=== PATIENT | male | born 1955 | race Caucasian/White ===

== ENCOUNTER → 2018-12-15 | Outpatient (CLI) | payer OTHER, SELFPAY ==
[2018-12-15 10:48] LABS: Anion Gap 8 (5-15); BUN 24 mg/dL (7-18); Calcium,Total 8.7 mg/dL (8.5-10.1); Chloride 102 mmol/L (98-107); Cholesterol 191 mg/dL (200); Creatinine, Serum 0.89 mg/dL (0.70-1.30); EST Glomerular Filtration Rate 91 mL/min (>60); Est Glom Filt Rate - Afr Amer 110 mL/min (>60); Glucose 102 mg/dL (74-106); High Density Lipoprotein 53 mg/dL; Potassium 4.3 mmol/L (3.5-5.1); Sodium Level 139 mmol/L (136-145); Triglycerides 109 mg/dL; Very Low Density Lipoprotein 22 mg/dL (5-40)
== END | disposition home or self-care (01) ==
PROVIDERS: Family Provider Family Medicine; PCP Family Medicine; Referring Provider Family Medicine; Visit Provider Family Medicine
DX: I10 Essential (primary) hypertension (principal)
CPT/HCPCS: 36415; 80048; 80061

== ENCOUNTER → 2019-08-30 16:16 | Outpatient (CLI) | payer MEDICARE, OTHER, SELFPAY ==
[2017-04-21 07:24] VITALS: BMI 28.6
[2019-08-30 18:10] LABS: Amphetamine Urine VISTA NEGATIVE (<1000 ng/mL); Barbiturate Urine VISTA NEGATIVE (< 200 ng/mL); Benzodiazepine Urine VISTA NEGATIVE (< 200 ng/mL); Cocaine Urine VISTA NEGATIVE (< 300 ng/mL); Ecstacy Urine VISTA NEGATIVE (< 500 ng/mL); Methadone Urine VISTA NEGATIVE (< 300 ng/mL); PCP Urine VISTA NEGATIVE (< 25 ng/mL); THC Urine VISTA NEGATIVE (< 50 ng/mL); Vista UDS pH Range 7
== END ==
PROVIDERS: Family Provider Family Medicine; PCP Family Medicine; Visit Provider Internal Medicine Pulmonary Disease
DX: G47.10 Hypersomnia, unspecified (principal)
CPT/HCPCS: 80307

== ENCOUNTER → 2020-01-12 12:17 | Outpatient (CLI) | payer MEDICARE, OTHER, SELFPAY ==
[2017-04-21 07:24] VITALS: BMI 28.6
[2020-01-12 13:39] LABS: Absolute Lymphocyte Count 2.59 X10^3/uL (0.83-4.51); Absolute Neutrophil Count 4.7 X10^3/uL (2.0-7.7); Basophil# 0.07 X10^3/uL; Basophil% 0.8 % (0-1); Eosinophil# 0.14 X10^3/uL; Eosinophils% 1.7 % (0-5); Hematocrit 50.6 % (40-54); Hemoglobin 16.2 g/dL (13.0-16.5); Lymphocyte # 2.59 X10^3/ul (4.0); Lymphocyte % 30.8 % (19-41); Mean Corpuscular Hgb 28.4 pg (27.0-32.0); Mean Corpuscular Volume 88.6 fL (80-94); Mean Platelet Vol. 9.2 fl (6.2-12.0); Monocyte# 0.89 X10^3/uL; Monocyte% 10.6 % (0-10); NRBC Flagged by Analyzer 0 % (0-5); Neutrophil # 4.66 X10^3/uL (2.7-7.7); Neutrophil % 55.3 % (47-70); Platelet Count 249 K/mm3 (150-450); RBC Distribution Width CV 13.1 % (11.6-14.6); RBC Distribution Width SD 42.5 fl (35.1-43.9); Red Blood Count 5.71 M/mm3 (4.6-6.2); White Blood Count 8.4 K/mm3 (4.4-11.0)
[2020-01-12 14:06] LABS: AST(SGOT) 27 U/L (15-37); Alanine Aminotransfer ALT/SGPT 58 U/L (16-61); Albumin, Serum 3.9 g/dL (3.2-5.0); Alkaline Phosphatase 63 U/L (45-117); Bilirubin, Direct 0.13 mg/dL (0.00-0.30); Globulin 3.7 g/dL (2.2-4.2); Protein, Total 7.6 g/dL (6.4-8.2)
== END ==
PROVIDERS: PCP Family Medicine; Referring Provider Dermatology; Visit Provider Dermatology
DX: B35.1 Tinea unguium (principal); L57.8 Other skin changes due to chronic exposure to nonionizing radiation; L57.0 Actinic keratosis; Z79.899 Other long term (current) drug therapy
CPT/HCPCS: 36415; 80076; 85025

== ENCOUNTER 2020-05-23 11:30 | Outpatient (RCR) | payer MEDICARE, OTHER, SELFPAY ==
--- NOTE | 2020-05-03 11:49 | HP.PTEVAL ---
Patient's Visit Information KRIS PEREZ is a 65 year old M referred to Physical Therapy by Dr. Keith Ibarra MD with a diagnosis of Unsteady gait.. Date of Evaluation: 05/03/20 Physical Therapist: John Johnson DPT, OCS, CSCS - Visit Plan Frequency: 2x /Week Duration: 4-6 Weeks Plan: Neurocom balance test then likely 2-3 visits to teach HEP or 2x/week for 4 weeks as needed. Likely vestibular ex, FW weight shift adn PF strength.Pt appears clinically to have weakness in Vestibular system adn FW weight shift and probable neuropathy. This may come from his back as he has history adn his R PF are weak vs L. He is to notify pain doctor for possible MRI which is appropriate and has been recommended previously. - Subjective A little trouble once in a while with balance. No precipitative factor. Has h/o back problems adn sees [facility] for pain management. Legs can feel numby if standing in place long time like at [facility]. 6 months have been worse balance off and on. Frequency can be a couple times per day to every other day and only lasts short time. No falls. No neuroapthy but back can make feet numb at times. Has some burning in L [place] with driving at times. No current pain. Just had injection in back recently. No spinning ro dizzyness. 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 Activities at home are normal, no aD needed. Basic ADLS are good. - Objective VOR challenging especially with walking. Walks normal otherwise. Transfers normal. Steps reciprocal without rail today. Pt tends to avoid forefoot weight shifting in stance and stressful situations.(foam). LE sensation to light touch at deficit in feet B. coordination to reciprocal toe tapping is weak in B E, better in UE. reflexes 2/3 patella and achilles. Strength in hips 4- and knees 4-, ankles 4/5 inv/ev/DF, PF is weak R unable to heel raise, L is better.. LBP ROM is stiff adn without pain today. Pt brings up walking in dark and stadning in shower with ec as problem areas. - Balance Scores Functional Gait Assessment Score: 25 % Disability: 16.6700 CATSIB Score (Max score 120 seconds): 100 - Goals Goal 1:: Patient score 27/30 on FGA to reduce fall risk Goal Time Frame: 4-6 Weeks Goal 2:: Neurocom test adn review results. Goal Time Frame: 2 Weeks Goal 3:: Pt I in appropriate HEP to minimze future problems. Goal Time Frame: 4-6 Weeks Goal 4:: Pt feel 50% improved in overall balance. Goal Time Frame: 4-6 Weeks - Rehabilitation Potential Physical Therapy Diagnosis: Unsteady gait, likely contributed by neuropathy, vest weakness. Rehabilitation Potential: Fair - Anticipated Interventions Patient/Client Instruction: Educate patient on: Condition, Plan of Care For the Purpose of:: To improve gait and locomotor functions, To improve balance, To improve safety with gait Therapeutic Exercise to Include: Strength training, Balance training, Gait and locomotor training For the Purpose of:: To improve muscle performance and motor function, To improve ability of physical actions for home/community/work/leisure, To improve safety with gait Thank you for the opportunity to evaluate your patient. For Medicare and Medicare HMO plans, please review the plan of care and approve it. It will need to be FAXED BACK to us at [phone] for Medicare purposes. For Medicare only, by signing this I certify the plan of care. Please let me know if there are questions or concerns regarding this plan of care. Physician Signature: Date:
--- NOTE | 2020-05-11 12:02 | HP.PTCOM_ITS ---
PT Communication Note 05/11/[address] Keith Ibarra MD , Thank you for the referral of Ghanshyam to [facility] for balance assessment. I have enclosed a copy of the results for your review. In summation, he scored low on the visual and somatosensory portion of the Sensory Organization Test. He scored low on the FW weight shift on the Limits of Stability Test. With these results in mind, I plan to see him for a couple visits to address these issues with an HEP and then let him exercise at home. I will recheck his balance in a month or so to ensure progress. Please let me know if there are questions regarding his PT. Thank you again. Sincerely, John Johnson DPT, OCS, CSCS Contact Information
--- NOTE | 2020-07-11 15:42 | HP.PT.NRP ---
KRIS PEREZ was seen in my office for initial evaluation on 05/03/20. The following Plan of Care was established for this patient: Initial Frequency: 2x /Week Initial Duration: 4-6 Weeks Patient/Client Instruction: Educate patient on: Condition, Plan of Care For the Purpose of:: To improve gait and locomotor functions, To improve balance, To improve safety with gait Therapeutic Exercise to Include: Strength training, Balance training, Gait and locomotor training For the Purpose of:: To improve muscle performance and motor function, To improve ability of physical actions for home/community/work/leisure, To improve safety with gait This patient was last seen in our office 05/23/20. Pertinent comments regarding their Physical therapy will appear below: Pt seen 4 visits of POC and then neglected to schedule or attend the rest of his POC. At this point, it has been over 6 weeks and I willd scontinue due to nonattendance. At this point I will be discontinuing this patient from physical therapy. I would be happy to see this patient again in the future if found appropriate by the physician. Thank you! John Johnson, DPT, OCS, CSCS
== END 2020-05-23 19:00 | disposition home or self-care (01) ==
LOC: PT 11:30
PROVIDERS: PCP Family Medicine; Referring Provider Family Medicine; Visit Provider Family Medicine
DX: R26.81 Unsteadiness on feet (principal)
CPT/HCPCS: 97110; 97162; 97750

== ENCOUNTER → 2020-06-15 10:10 | Outpatient (CLI) | payer MEDICARE, OTHER, SELFPAY ==
--- NOTE | 2020-06-15 10:16 | MRI_ITS ---
STUDY: MRI LUMBAR SPINE WITHOUT CONTRAST REASON FOR EXAM: Male, 65 years old. back pain radiatess into both legs, bilat leg numbess TECHNIQUE: Standardized fat and water weighted pulse sequences were obtained in the sagittal and axial planes. COMPARISON: 06/15/2014 FINDINGS: T12-L1: Normal endplates. Normal disc height, hydration and morphology. Normal bilateral facet joints. Normal central canal and bilateral lateral recesses. Normal bilateral intervertebral neural foramina. Normal lumbar lordosis. There is no substantial scoliosis. Normal conus medullaris that terminates at T12-L1 L1-2: Normal endplates. Normal disc height, hydration and morphology. Normal bilateral facet joints. Normal central canal and bilateral lateral recesses. Normal bilateral intervertebral neural foramina. L2-3: Normal endplates. Normal disc height, desiccation and minimal annular bulge.. Mild facet arthropathy and thickening of ligamenta flava greater on the left. Normal central canal and bilateral lateral recesses. Mild right neuroforaminal stenosis and moderate narrowing on the left. L3-4: Normal endplates. Normal disc height, desiccation and minimal annular bulge.. Bilateral facet arthropathy and thickening of ligamenta flava.. Normal central canal. Moderate bilateral recess and neuroforaminal stenosis L4-5: Grade 1 spondylolisthesis Normal endplates. Normal disc height, desiccation and minor bulging disc osteophyte complex small right paracentral annular tear and disc protrusion.. Bilateral facet arthropathy and thickening of ligamenta flava.. Mild narrowing of the central canal.. Moderate to severe bilateral recess and neuroforaminal stenosis exaggerated by shortened pedicles.. L5-S1: Normal endplates. Normal disc height, desiccation and minor annular bulge with tiny right paracentral annular tear and disc protrusion. Bilateral facet arthropathy.. Normal central canal and bilateral lateral recesses. Mild bilateral neuroforaminal stenosis. Normal visualized sacral ala. Normal visualized paraspinous soft tissue structures. There appears to be slightly increasing spinal stenosis at L3-4 and L4-5 since prior study.. MRI/Spine Lumbar (Routine) IMPRESSION: No acute fracture or other significant bony pathology. Multilevel spinal stenosis secondary to disc disease and bony hypertrophy most severe at L4-5 exaggerated by shortened pedicles and L3-4 Electronically Signed: Kris Bell MD at 16:59 EDT , Service support ,
== END ==
PROVIDERS: PCP Family Medicine; Referring Provider Nurse Practitioner Family; Visit Provider Nurse Practitioner Family
DX: M51.37 Other intervertebral disc degeneration, lumbosacral region (principal); M47.27 Other spondylosis with radiculopathy, lumbosacral region; M46.96 Unspecified inflammatory spondylopathy, lumbar region
CPT/HCPCS: 72148

== ENCOUNTER → 2020-10-24 09:34 | Outpatient (CLI) | payer MEDICARE, OTHER, SELFPAY ==
[2017-04-21 07:24] VITALS: BMI 28.6
[2020-10-24 10:42] LABS: ALB/GLOB Ratio 1.1 RATIO (0.9-2.4); AST(SGOT) 26 U/L (15-37); Alanine Aminotransfer ALT/SGPT 64 U/L (16-61); Albumin, Serum 3.8 g/dL (3.2-5.0); Alkaline Phosphatase 64 U/L (45-117); Anion Gap 5 (5-15); BUN 29 mg/dL (7-18); BUN/Creat Ratio 30.3 RATIO (10-20); Chloride 103 mmol/L (98-107); Cholesterol 181 mg/dL (200); Creatinine, Serum 0.96 mg/dL (0.70-1.30); EST Glomerular Filtration Rate 83 mL/min (>60); Est Glom Filt Rate - Afr Amer 101 mL/min (>60); Globulin 3.4 g/dL (2.2-4.2); Glucose 96 mg/dL (74-106); High Density Lipoprotein 55 mg/dL; Potassium 3.9 mmol/L (3.5-5.1); Protein, Total 7.2 g/dL (6.4-8.2); Sodium Level 136 mmol/L (136-145); Triglycerides 108 mg/dL; Very Low Density Lipoprotein 22 mg/dL (5-40)
== END ==
PROVIDERS: PCP Family Medicine; Referring Provider Family Medicine; Visit Provider Family Medicine
DX: I10 Essential (primary) hypertension (principal); E78.00 Pure hypercholesterolemia, unspecified; Z12.5 Encounter for screening for malignant neoplasm of prostate
CPT/HCPCS: 36415; 80053; 80061; 84153; G0103

== ENCOUNTER 2021-01-08 06:29 | Day surgery (SDC) | payer MEDICARE, OTHER, SELFPAY ==
[2017-04-21 07:24] VITALS: BMI 28.6
[2021-01-08] VITALS (7 sets, daily range): BP systolic 97–115; BP diastolic 68–73; PULSE 65–91; RESP 16; TEMP 36.9–37.2; O2SAT 94–98; BMI 29.0
[2021-01-08] MEDS: Lactated Ringers 1,000 ML 100 ML IV (07:07)
--- NOTE | 2021-01-08 07:29 | H&P.OPEN ---
HPI - General HPI Narrative KRIS PEREZ, is a 65 M who presents for colonoscopy due to history of polyps. Patient last colonoscopy was about 5 years ago at [facility]. Patient denies any chronic abdominal pain/nausea or vomiting. Patient states his reflux is controlled with Protonix. Patient also had an EGD by me in 2017 showed some reflux. Patient denies any family history of colon cancer. [facility] Medical History (Updated 01/08/21 @ 07:[address] Yesika Koch MD) Anxiety Back pain CPAP (continuous positive airway pressure) dependence GERD (gastroesophageal reflux disease) Hx of cardiovascular stress test Hx of echocardiogram Hx of Raynaud's syndrome Hypertension Non-smoker Wears glasses Home Medications Fish Oil 2 ea PO BID 06/14/14 [History Last Taken 06/14/14] Therems-M 1 tab PO DAILY 06/14/14 [History Last Taken 06/13/14] aspirin 81 mg PO DAILY@0800 06/14/14 [History Last Taken 01/07/21 06:00] atenolol 12.5 mg PO DAILY 06/14/14 [History Last Taken 04/21/17 06:00] citalopram 10 mg PO DAILY 06/14/14 [History Last Taken 06/14/14] zgujvvglydd-hbsktshpw-fen C-Mn 1 tab PO DAILY 06/14/14 [History Last Taken 06/13/14] meloxicam 15 mg PO DAILY 06/14/14 [History Last Taken 06/14/14] cyclobenzaprine 10 mg PO TID PRN PRN #30 tablet 06/16/14 [Rx Last Taken Unknown] lisinopril 10 mg PO DAILY #30 tablet 06/16/14 [Rx Last Taken 04/21/17 06:00] pantoprazole 40 mg PO DAILY #14 tablet 06/16/14 [Rx Last Taken 04/21/17 06:00] pravastatin 20 mg PO DAILY 04/21/17 [History Last Taken Unknown] gabapentin 400 mg PO TIDCM 01/04/21 [History Last Taken Unknown] nifedipine 30 mg PO QHS 01/04/21 [History Last Taken Unknown] Allergy/AdvReac Type Severity Reaction Status Date / Time No Known Allergies Allergy Verified 01/08/21 07:00 Surgical History (Updated 01/04/21 @ 11:08 by Renetta Jackson) History of esophagogastroduodenoscopy (EGD) Hx of appendectomy Hx of arthroscopy of left knee Hx of arthroscopy of right knee Hx of tonsillectomy Social History Smoking Status: Never smoker Past Medical/Surgical History Planned Operation Planned Operative Procedure/s: cscope S.O.S: No Previous Hospitalizations/Surgeries HX Hospitalizations: No HX of Surgeries: ANISHA KNEE ARTHROSCOPY T&A APPENDECTOMY Any Problems With Anesthesia: No You/Your Family Experience Fever (Hyperthermia) With Anes: No Cholinesterase deficiency: No Cardiovascular Hx Chest Pain within Last 2 months: No Hx of Irregular Heartbeat and/or Afib: No Hx Heart Attack: No Hx Congestive Heart Failure: No Hx Rheumatic Fever: No Hx Hypertension: Yes (controlled with med) Hx Internal Defibrillator: No Hx Pacemaker: No Hx Cardiac Catheterization: No Hx Cardiac Surgery/Stents/Etc.: No Hx Stress Test: Yes (2013 [facility], ECHO 2013) Hx Pain in Legs when Walking/Leg Cramps: No Respiratory Chronic Cough: No HX of Shortness of Breath: No (ABLE 2TO WALK 2 FLIGHTS OF STAIRS WITHOUT SOB) Hoarseness: No Hx Chronic Obstructive Pulmonary Disease (COPD): No Hx Asthma: No Hx Emphysema: No Hx Sleep Apnea: Yes CPAP: Yes BIPAP: No Hx Respiratory Tract Infection/Cold (presently): No Result (for STOP score): Positive Hx Smoking: No Smoking Status: Never smoker Gastrointestinal Hx Gastroesophageal Reflux: Yes Controlled With Meds: Yes Hx Gastrointestinal Disorders: No Hx Gastrointestinal Bleed: No Hx Ulcer: No Hx Hiatal Hernia: No Difficulty Chewing/Swallowing: No Special diet followed at home: No Hx Unplanned Weight Loss of 20#: No HX Unplanned Weight Gain of 20#: No Neurological Hx Seizures: No HX Syncope/Blackout Spells/Unconsciousness: No Hx Transient Ischemic Attacks (TIA): No Hx Multiple Sclerosis: No Hx Parkinson's Disease: No Hx Head/Neck Injury: No Hx Headaches: No Hx Back Injury/Pain: Yes (lower spine stenosis, herniated disc) Recent Onset of Speech Difficulty: No Restless Legs: No Does patient have nerve stimulator: No Blood Disorder Hx Leukemia: No Bleeding Tendencies: Yes (ON BABY ASPIRIN) Hx Deep Vein Thrombosis: No Hx High Cholesterol: Yes (ON MED) Blood Transmitted Disease: No Hx Hepatitis: No Hx Cirrhosis: No Hx Anemia: No Hx Blood Disorders: No Reproduction : No Genitourinary Hx Renal Disease: No Hx Dialysis: No Musculoskeletal Hx Arthritis: Yes Hx Rheumatoid Arthritis: No Hx Gout: No Recent Onset of an Orthopedic Problem: No Endocrine Hx Diabetes: No Insulin: No Thyroid Disease: No Hx Steroid Therapy: No Psycho/Social Hx Substance Use: No Hx Alcohol Use: No Hx Anxiety: Yes Hx Depression: No Mental Illness: No Hx Dementia: No Miscellaneous Hx Cancer: No Recent Exposure to Contagious Disease: No Hx of C-Diff: No Any Loose Teeth: No Allergies No Known Allergies Allergy (Verified 01/08/21 07:00) Maternal: Cancer (Gallbladder.) and Diabetes Paternal: Heart Disease (Father and grandfather with [facility] in 40-50s.) Discharge Is Pt Admitted From a Penitentiary, or a Custodial: No After D/C, Where Do you Plan to Go: Return Home From the PAT History Number of Risk Factors: 2 Vital Signs Vital Signs Vital Signs: 01/08/21 07:01 Temperature 98.7 F Temperature Source Temporal Pulse Rate 72 Respiratory Rate 16 Respiratory Pattern Normal Blood Pressure 115/72 Blood Pressure Mean 86 Blood Pressure Source Monitor Blood Pressure Position Semi-Fowlers Blood Pressure Location Left Arm Pulse Ox 98 Oxygen Delivery Method Room Air Physical Exam Const alert, oriented x3 and no apparent distress HEENT normocephalic and head/scalp atraumatic Resp normal respiratory effort Cardio regular rate GI soft to palpation and non-tender; Negative for non-distended Palpation: Negative for guarding Extremity no clubbing, cyanosis or edema Neuro CN's II-XII intact bilaterally Psych mental status grossly normal Assessment & Plan Assessment/Plan (1) Hx of colonic polyp: Procedure Criteria Type of Procedure Procedure Type: Elective Elective Risks - COVID COVID Risk Discussion: The surgeon/proceduralist and patient have discussed in detail the risk of exposure to and/or potential harm posed by the COVID-19 virus with having a surgery/procedure at this time versus the risk of delaying the surgery/procedure. It is not possible to know either the risk of delaying the surgery or procedure or chance of getting an infection with perfect accuracy, but a joint decision was made between the patient and the surgeon/proceduralist to proceed at this time with the scheduled surgery/procedure as indicated on the consent form. Surgery Risks - Colonoscopy Risks Include but are not Limited To: Risks include but are not limited to: Bleeding, perforation requiring further surgery, inability to complete colonoscopy requiring barium enema.
--- NOTE | 2021-01-08 08:00 | COLBX_PTH ---
PATIENT: KRIS PEREZ LOC: EN U#:[id number] AGE/SX: 65/M ROOM: RE01/08/[address]: Dr. Yesika Koch MD : 1955 BED: DIS: 01/08/2021 SPEC #: [id number] RECD: 01/08/21 10:20 STATUS: DOMINIQUE REQ #: [id number] NATASHA: 01/08/21 08:[address]: Yesika Koch DEPT: SURGICAL PATHOLOGY RECD BY: Trixie Cerrato ENTERED: 01/08/21 12:58 SP TYPE: COLON BX OTHR DR: Dr. Keith Ibarra MD Tissues: Ascending colon Procedures: Surgery Specimen Level IV HEADER OPERATION: Colonoscopy ? open access (MAC) PRE-OP DIAGNOSIS: History of colonic polyp TISSUE SUBMITTED: Ascending colon polyp biopsy MICROSCOPIC DIAGNOSIS Ascending colon polyp, biopsy: Tubular adenoma. SJ:alannah 01/09/2021 MICROSCOPIC DESCRIPTION Slides are reviewed. GROSS DESCRIPTION Received in fixative is one container labeled with the patient's name and designated ascending colon polyp biopsy. The specimen consists of two irregular fragments of light diaz soft tissue that in aggregate measure 0.4 x 0.2 x 0.1 cm. The specimen is totally submitted in one cassette. / SJ:rg 01/08/21 TC:1 CPT: 37967
--- NOTE | 2021-01-08 08:22 | OP.COLON_ITS ---
Patient Name: Ghanshyam Navarrete Procedure Date: 01/08/2021 7:08 AM Date of : 1955 Age: 65 Procedure: Colonoscopy Indications: High risk colon cancer surveillance: Personal history of colonic polyps Providers: Yesika Koch MD Medicines: Monitored Anesthesia Care Patient Profile: This is a 65 year old male. Last Colonoscopy: 5 years ago. Complications: No immediate complications. Procedure: Pre-Anesthesia Assessment: - Prior to the procedure, a History and Physical was performed, and patient medications and allergies were reviewed. The patient's tolerance of previous anesthesia was also reviewed. The risks and benefits of the procedure and the sedation options and risks were discussed with the patient. All questions were answered, and informed consent was obtained. Prior Anticoagulants: The patient has taken no previous anticoagulant or antiplatelet agents. ASA Grade Assessment: Per anesthesia. After reviewing the risks and benefits, the patient was deemed in satisfactory condition to undergo the procedure. After I obtained informed consent, the scope was passed under direct vision. Throughout the procedure, the patient's blood pressure, pulse, and oxygen saturations were monitored continuously. The pediatric colonoscope was introduced through the anus and advanced to the cecum, identified by the appendiceal orifice, ileocecal valve and palpation. The colonoscopy was performed without difficulty. The patient tolerated the procedure well. The quality of the bowel preparation was good. Scope In: 7:53:21 AM Scope Withdrawal Time 0 hours 11 minutes 43 seconds Scope Out: 8:14:43 AM Total Procedure Duration Time 0 hours 21 minutes 22 seconds Findings: Hemorrhoids were found on perianal exam. External and internal hemorrhoids were found. The hemorrhoids were Grade III (internal hemorrhoids that prolapse but require manual reduction). A less than 5 mm polyp was found in the ascending colon. The polyp was sessile. The polyp was removed with a cold biopsy forceps. Resection and retrieval were complete. The exam was otherwise without abnormality. Impression: - Hemorrhoids found on perianal exam. - External and internal hemorrhoids. - One less than 5 mm polyp in the ascending colon, removed with a cold biopsy forceps. Resected and retrieved. - The examination was otherwise normal. Recommendation: - Discharge patient to home. - Resume previous diet. - Continue present medications. - Await pathology results. - Repeat colonoscopy in 5 years for surveillance based on pathology results. Procedure Code(s): --- Professional --- 97521, PT, Colonoscopy, flexible; with biopsy, single or multiple Diagnosis Code(s): --- Professional --- Z86.010, Personal history of colonic polyps K64.2, Third degree hemorrhoids D12.2, Benign neoplasm of ascending colon CPT copyright 2017 [employer]. All rights reserved. The codes documented in this report are preliminary and upon protection analyst review may be revised to meet current compliance requirements. MD Yesika Urbano MD 01/08/2021 8:22:08 AM This report has been signed electronically. Number of Addenda: 0 Note Initiated On: 01/08/2021 7:08 AM
--- NOTE | 2021-01-08 08:23 | OP.CCLET_ITS ---
01/08/2021 Keith Ibarra MD [address] [id number] Re : Colonoscopy procedure for Ghanshyam Navarrete Dear Dr. Ibarra This procedure was performed on Friday, January 08, 2021. My impressions and recommendations are as follows: Impressions : - Hemorrhoids found on perianal exam. - External and internal hemorrhoids. - One less than 5 mm polyp in the ascending colon, removed with a cold biopsy forceps. Resected and retrieved. - The examination was otherwise normal. Recommendations : - Discharge patient to home. - Resume previous diet. - Continue present medications. - Await pathology results. - Repeat colonoscopy in 5 years for surveillance based on pathology results. My findings are described in the full procedure note, which is enclosed. If I can be of further assistance, please feel free to contact me at Doctor phone number(s): , Work: . Sincerely, MD Yesika Urbano MD 01/08/2021 8:22:08 AM This report has been signed electronically.
== END 2021-01-08 09:09 ==
LOC: EN 06:31 → AC 06:32
PROVIDERS: PCP Family Medicine; Referring Provider Family Medicine; Visit Provider Surgery
PROC: 0DJD8ZZ Inspection of Lower Intestinal Tract, Via Natural or Artificial Opening Endoscopic (ICD-10-PCS; CPT 45378; principal; 2021-01-08 07:55)
DX: Z12.11 Encounter for screening for malignant neoplasm of colon (principal); D12.2 Benign neoplasm of ascending colon; K64.4 Residual hemorrhoidal skin tags; K64.2 Third degree hemorrhoids; I10 Essential (primary) hypertension; F41.9 Anxiety disorder, unspecified; K21.9 Gastro-esophageal reflux disease without esophagitis; Z79.82 Long term (current) use of aspirin; Z79.1 Long term (current) use of non-steroidal anti-inflammatories (NSAID); Z79.899 Other long term (current) drug therapy; Z86.010 Personal history of colon polyps; Z87.19 Personal history of other diseases of the digestive system
CPT/HCPCS: 45380; 88305; J7120; J2405

== ENCOUNTER 2021-10-31 10:13 | Outpatient (CLI) | payer MEDICARE, OTHER, SELFPAY ==
--- NOTE | 2021-10-31 10:20 | MRI_ITS ---
HISTORY: Radiculopathy, spondylosis. TECHNIQUE: Multiplanar and multisequence MR images of the lumbar spine. IV Contrast dosage and agent: None. # of images incl. paperwork: 126. COMPARISON: 06/15/2020. FINDINGS: VERTEBRAE: Vertebral body heights maintained. Mild degenerative endplate changes without significant bone marrow signal abnormality. ALIGNMENT: Unchanged 2 mm anterolisthesis of L4-5. CONUS: Normal morphology and position at T12-L1. SOFT TISSUES: No paraspinal fluid collection. Mild posterior subcutaneous edema. INTERVERTEBRAL DISCS: T12-L1, L1-2: No significant posterior disc herniation, central canal stenosis, or foraminal narrowing. L2-3:Mild posterior disc bulge osteophyte complex with facet arthropathy resulting in mild central canal stenosis with mild-moderate foraminal narrowing, similar to prior. L3-4: Mild posterior disc protrusion with annular fissure. Facet arthropathy and developmentally narrow spinal canal. Moderate-severe central canal stenosis and moderate bilateral foraminal narrowing. L4-5: Mild posterior disc protrusion with annular fissure. Facet arthropathy and developmentally narrow spinal canal. Severe central canal stenosis and moderate bilateral foraminal narrowing. L5-S1: Mild posterior disc protrusion with annular fissure. Facet arthropathy. Mild central canal stenosis and bilateral foraminal narrowing. MRI/Spine Lumbar (Routine) IMPRESSION: Multilevel degenerative disc disease with moderate-severe spinal canal stenosis at L3-4 and severe spinal canal stenosis at L4-5 as described above. at 1134 Reported and signed by: Torri Ybarra MD Electronically Signed: Torri Ybarra MD at 11:33 EST ,
== END 2021-10-31 23:59 | disposition home or self-care (01) ==
LOC: MRI 10:16
PROVIDERS: PCP Family Medicine; Referring Provider Nurse Practitioner Family; Visit Provider Nurse Practitioner Family
DX: M46.96 Unspecified inflammatory spondylopathy, lumbar region (principal); M51.37 Other intervertebral disc degeneration, lumbosacral region; M54.17 Radiculopathy, lumbosacral region; M47.817 Spondylosis without myelopathy or radiculopathy, lumbosacral region
CPT/HCPCS: 72148

== ENCOUNTER → 2022-01-09 | Outpatient (CLI) | payer MEDICARE, OTHER, SELFPAY ==
[2022-01-09 12:24] LABS: ALB/GLOB Ratio 1.1 RATIO (0.9-2.4); AST(SGOT) 19 U/L (15-37); Alanine Aminotransfer ALT/SGPT 49 U/L (16-61); Alkaline Phosphatase 61 U/L (45-117); Anion Gap 2 (5-15); BUN 21 mg/dL (7-18); BUN/Creat Ratio 23.9 RATIO (10-20); Calcium,Total 8.9 mg/dL (8.5-10.1); Chloride 103 mmol/L (98-107); Cholesterol 182 mg/dL (200); Creatinine, Serum 0.88 mg/dL (0.70-1.30); EST Glomerular Filtration Rate 92 mL/min (>60); Est Glom Filt Rate - Afr Amer 111 mL/min (>60); Globulin 3.5 g/dL (2.2-4.2); Glucose 105 mg/dL (74-106); High Density Lipoprotein 48 mg/dL; Potassium 3.6 mmol/L (3.5-5.1); Protein, Total 7.5 g/dL (6.4-8.2); Sodium Level 136 mmol/L (136-145); Triglycerides 127 mg/dL; Very Low Density Lipoprotein 25 mg/dL (5-40)
[2022-01-09 12:28] LABS: Hemoglobin A1c 5.8 % (3.8-5.6)
== END | disposition home or self-care (01) ==
LOC: MFPLAB 10:35
PROVIDERS: PCP Family Medicine; Referring Provider Family Medicine; Visit Provider Family Medicine
DX: E78.00 Pure hypercholesterolemia, unspecified (principal); R73.09 Other abnormal glucose
CPT/HCPCS: 36415; 80053; 80061; 83036

== ENCOUNTER 2022-06-18 12:20 | Emergency (ER) | payer MEDICARE, OTHER, SELFPAY ==
[2022-06-18 12:21] VITALS: BP 126/85; PULSE 91; RESP 18; TEMP 36.7; O2SAT 100; BMI 31.1
--- NOTE | 2022-06-18 13:18 | VDLE_ITS ---
Reason For Study: Swelling Procedure LEFT This is a venous duplex using B-mode, color GSV is normal. flow and spectral Doppler. CFV is compressible, spontaneous, phasic, Exam performed portable in ED. competent, and demonstrates normal A preliminary report was called and/or faxed augmentation. to [facility]. FV is compressible, spontaneous, phasic, competent and demonstrates normal augmentation. POP V is compressible, spontaneous, phasic, competent and demonstrates normal augmentation. T/P Trunk is compressible. PTV is compressible. LT PerV is compressible. VL/Venous Duplex US, Unilateral Interpretation Summary Deep veins of the left lower extremity are patent and compressible segmentally. There is no evidence of left lower extremity deep vein thrombosis. The left great saphenous vein adrian ears patent and compressible segmentally. Ordering Physician: Lovely Winston Referring Physician: Keith Ibarra Performed By: Tatyana Hernandez RVT
--- NOTE | 2022-06-18 13:19 | EX.ED.DYSGE1 ---
HPI History of Present Illness Chief Complaint: Lower Extremity Injury Detail of Chief Complaint: Left leg swelling Informant: patient Narrative Narrative: Patient is 1 month postop back surgery. He went to see them yesterday for follow-up. They felt that the left leg was slightly more swollen than the right patient should have an ultrasound. Patient states that he called this morning to get the test scheduled but was told he could not be scheduled until June. He states his doctor wanted it done immediately so he was referred to the emergency room. He denies significant leg pain. He states overall he feels that he is healing well from his surgery. [facility] Medical History Anxiety Back pain CPAP (continuous positive airway pressure) dependence GERD (gastroesophageal reflux disease) Hx of cardiovascular stress test Hx of echocardiogram Hx of Raynaud's syndrome Hypertension Non-smoker Wears glasses Home Medications aspirin 81 mg chewable tablet 81 mg PO DAILY@0800 06/14/14 [History Last Taken 01/07/21 06:00] atenolol 25 mg tablet 12.5 mg PO DAILY 06/14/14 [History Last Taken 04/21/17 06:00] citalopram 10 mg tablet 10 mg PO DAILY 06/14/14 [History Last Taken 06/14/14] ypqvsisgrla-gqawyivya-jew C-Mn 500 mg-400 mg capsule 1 tab PO DAILY 06/14/14 [History Last Taken 06/13/14] meloxicam 15 mg tablet 15 mg PO DAILY 06/14/14 [History Last Taken 06/14/14] multivitamin,ad-jntj-mjchjdld 27 mg-0.4 mg tablet (Therems-M) 1 tab PO DAILY 06/14/14 [History Last Taken 06/13/14] omega-3 fatty acids-fish oil 340 mg-1,000 mg capsule (Fish Oil) 2 ea PO BID 06/14/14 [History Last Taken 06/14/14] cyclobenzaprine 10 mg tablet 10 mg PO TID PRN PRN Muscle Spasm ##30 06/16/14 [Rx Last Taken Unknown] lisinopril 10 mg tablet 10 mg PO DAILY ##30 06/16/14 [Rx Last Taken 04/21/17 06:00] pantoprazole 40 mg tablet,delayed release 40 mg PO DAILY ##14 06/16/14 [Rx Last Taken 04/21/17 06:00] pravastatin 20 mg tablet 20 mg PO DAILY 04/21/17 [History Last Taken Unknown] gabapentin 100 mg capsule 400 mg PO TIDCM 01/04/21 [History Last Taken Unknown] nifedipine 30 mg tablet,extended release 30 mg PO QHS 01/04/21 [History Last Taken Unknown] Allergy/AdvReac Type Severity Reaction Status Date / Time No Known Allergies Allergy Verified 06/18/22 12:23 Surgical History History of esophagogastroduodenoscopy (EGD) Hx of appendectomy Hx of arthroscopy of left knee Hx of arthroscopy of right knee Hx of tonsillectomy Social History Smoking Status: Never smoker ROS ROS ED Constitutional Constitutional ED: Denies chills or fever(s) Eyes Eyes: Denies change in vision or discharge from eye(s) ENT ENT ED: Denies discharge from eye(s), rhinorrhea or sore throat Cardiovascular Cardiovascular: Denies chest pain or palpitations Respiratory/Chest Respiratory/Chest: Denies cough or dyspnea Gastrointestinal Gastrointestinal: Denies abdominal pain, diarrhea, nausea or vomiting Genitourinary Genitourinary ED: Denies dysuria Musculoskeletal Musculoskeletal: Denies back pain or extremity pain Integumentary Denies Abrasions or rash Neurologic Neurologic: Denies headache(s) or weakness Psychiatric Psychiatric: Denies anxiety or depression Allergic/Immunologic Allergic/Immunologic ED: Denies lip swelling or urticaria EXAM Physical Exam Const Vital Signs: 06/18/22 12:21 Temperature 98.1 F Temperature Source Temporal Pulse Rate 91 Respiratory Rate 18 Blood Pressure 126/85 H Blood Pressure Mean 98 Pulse Ox 100 Oxygen Delivery Method Room Air Positive well nourished and well developed General Appearance ED: well developed HEENT Reports normocephalic and head/scalp atraumatic Eyes PERRL and EOMs intact bilaterally Neck supple Chest Wall inspection of chest normal and palpation of chest normal Resp normal respiratory effort and clear to auscultation bilaterally Cardio regular rate and regular rhythm GI normal to inspection, nondistended, normoactive bowel sounds Palpation: soft Extremity Extremity Narrative: Mild edema to the left lower extremity. No erythema. Strong distal pulses. Neuro oriented x3 and no sensory deficits noted Sensorium / Orientation: alert Motor Exam: strength 5/5 throughout Psych mental status grossly normal Skin no rashes or lesions noted MDM MDM MDM Narrative Medical decision making narrative: Venous ultrasound left lower extremity obtained. Treatment and Re-Evaluation Narrative: Venous ultrasound reveals no evidence of DVT. Test results discussed with patient and spouse at bedside. They are comfortable with discharge to home. Discharge Plan Triage Chief Complaint: Lower Extremity Injury ED Provider: Lovely Winston Dx/Rx/DC Orders Clinical Impression: Edema Instructions: ED Peripheral Edema, Unilateral Prescriptions: No Action citalopram 10 MG tablet 10 mg PO DAILY Label Comments: depression meloxicam 15 MG tablet 15 mg PO DAILY Label Comments: pain atenolol 25 MG tablet 12.5 mg PO DAILY Label Comments: heart/blood pressure aspirin 81 MG tablet,chewable 81 mg PO DAILY@0800 Label Comments: blood thinner/heart Therems-M 1 TABLET tablet 1 tab PO DAILY Label Comments: vitamin dbcmzfmmdvr-kdicnpeit-enn C-Mn 1 EACH capsule 1 tab PO DAILY Label Comments: supplement Fish Oil 1 EACH capsule 2 ea PO BID Label Comments: heart cyclobenzaprine 10 MG tablet 10 mg PO TID PRN PRN (Reason: Muscle Spasm) Qty: 30 0RF Label Comments: spasms lisinopril 10 MG tablet 10 mg PO DAILY Qty: 30 0RF Label Comments: blood pressure pantoprazole 40 MG tablet 40 mg PO DAILY Qty: 14 0RF Label Comments: acid reflux pravastatin 20 MG tablet 20 mg PO DAILY nifedipine 30 mg Tablet Extended Release 30 mg PO QHS gabapentin 100 MG capsule 400 mg PO TIDCM Label Comments: nueropathy Primary Care Provider: Keith Ibarra Referrals: Keith Ibarra MD [Primary Care Provider] - 1 Week if not improving Disposition Disposition: Home, Self Care
== END 2022-06-18 14:07 | disposition home or self-care (01) ==
PROVIDERS: Emergency Provider Emergency Medicine; PCP Family Medicine; Visit Provider Emergency Medicine
DX: R60.9 Edema, unspecified (principal); I10 Essential (primary) hypertension; K21.9 Gastro-esophageal reflux disease without esophagitis; F41.9 Anxiety disorder, unspecified; Z79.82 Long term (current) use of aspirin; Z79.899 Other long term (current) drug therapy
CPT/HCPCS: 93971; 99282

== ENCOUNTER → 2022-07-09 | Outpatient (CLI) | payer MEDICARE, OTHER, SELFPAY ==
[2022-07-09 12:13] LABS: ALB/GLOB Ratio 1.1 RATIO (0.9-2.4); AST(SGOT) 22 U/L (15-37); Alanine Aminotransfer ALT/SGPT 38 U/L (16-61); Albumin, Serum 3.9 g/dL (3.2-5.0); Alkaline Phosphatase 98 U/L (45-117); Anion Gap 7 (5-15); BUN 23 mg/dL (7-18); BUN/Creat Ratio 28.2 RATIO (10-20); Chloride 101 mmol/L (98-107); Cholesterol 146 mg/dL (200); Creatinine, Serum 0.82 mg/dL (0.70-1.30); EST Glomerular Filtration Rate 100 mL/min (>60); Est Glom Filt Rate - Afr Amer 121 mL/min (>60); Globulin 3.7 g/dL (2.2-4.2); Glucose 105 mg/dL (74-106); High Density Lipoprotein 53 mg/dL; Potassium 3.8 mmol/L (3.5-5.1); Protein, Total 7.6 g/dL (6.4-8.2); Sodium Level 137 mmol/L (136-145); Triglycerides 77 mg/dL; Very Low Density Lipoprotein 15 mg/dL (5-40)
== END | disposition home or self-care (01) ==
LOC: MFPLAB 09:27
PROVIDERS: PCP Family Medicine; Referring Provider Family Medicine; Visit Provider Family Medicine
DX: E78.00 Pure hypercholesterolemia, unspecified (principal)
CPT/HCPCS: 36415; 80053; 80061

== ENCOUNTER → 2023-02-04 | Outpatient (CLI) | payer MEDICARE, OTHER, SELFPAY ==
[2023-02-04 13:11] LABS: ALB/GLOB Ratio 1.1 RATIO (0.9-2.4); AST(SGOT) 20 U/L (15-37); Alanine Aminotransfer ALT/SGPT 31 U/L (16-61); Albumin, Serum 3.8 g/dL (3.2-5.0); Alkaline Phosphatase 72 U/L (45-117); Anion Gap 6 (5-15); BUN 18 mg/dL (7-18); BUN/Creat Ratio 22.7 RATIO (10-20); Calcium,Total 9.8 mg/dL (8.5-10.1); Chloride 103 mmol/L (98-107); Creatinine, Serum 0.79 mg/dL (0.70-1.30); EST Glomerular Filtration Rate 103 mL/min (>60); Est Glom Filt Rate - Afr Amer 124 mL/min (>60); Globulin 3.4 g/dL (2.2-4.2); Glucose 95 mg/dL (74-106); Potassium 4.4 mmol/L (3.5-5.1); Protein, Total 7.2 g/dL (6.4-8.2); Sodium Level 137 mmol/L (136-145)
== END | disposition home or self-care (01) ==
LOC: MFPLAB 09:53
PROVIDERS: PCP Family Medicine; Visit Provider Family Medicine
DX: I10 Essential (primary) hypertension (principal)
CPT/HCPCS: 36415; 80053

== ENCOUNTER → 2023-04-14 | Outpatient (CLI) | payer MEDICARE, OTHER, SELFPAY ==
[2023-04-14 13:29] LABS: CPK Total, Creatine Kinase 176 U/L (39-308)
== END | disposition home or self-care (01) ==
LOC: MFPLAB 10:14
PROVIDERS: PCP Family Medicine; Visit Provider Family Medicine
DX: M79.18 Myalgia, other site (principal)
CPT/HCPCS: 36415; 82550

== ENCOUNTER → 2023-07-28 | Outpatient (CLI) | payer MEDICARE, OTHER, SELFPAY ==
[2023-07-28 13:55] LABS: ALB/GLOB Ratio 1.1 RATIO (0.9-2.4); AST(SGOT) 16 U/L (15-37); Alanine Aminotransfer ALT/SGPT 32 U/L (16-61); Albumin, Serum 3.9 g/dL (3.2-5.0); Alkaline Phosphatase 58 U/L (45-117); Anion Gap 7 (5-15); BUN 22 mg/dL (7-18); BUN/Creat Ratio 23.6 RATIO (10-20); Calcium,Total 9.1 mg/dL (8.5-10.1); Chloride 101 mmol/L (98-107); Cholesterol 184 mg/dL (200); Creatinine, Serum 0.93 mg/dL (0.70-1.30); EST Glomerular Filtration Rate 85 mL/min (>60); Est Glom Filt Rate - Afr Amer 103 mL/min (>60); Globulin 3.5 g/dL (2.2-4.2); Glucose 101 mg/dL (74-106); High Density Lipoprotein 53 mg/dL; PSA,Total - Annual Screen 0.33 ng/mL (0.00-4.00); Potassium 4.2 mmol/L (3.5-5.1); Protein, Total 7.4 g/dL (6.4-8.2); Sodium Level 136 mmol/L (136-145); Triglycerides 138 mg/dL; Very Low Density Lipoprotein 28 mg/dL (5-40)
== END | disposition home or self-care (01) ==
LOC: MFPLAB 09:38
PROVIDERS: PCP Family Medicine; Visit Provider Family Medicine
DX: Z12.5 Encounter for screening for malignant neoplasm of prostate (principal); E78.00 Pure hypercholesterolemia, unspecified
CPT/HCPCS: 36415; 80053; 80061; 84153; G0103

== ENCOUNTER → 2024-06-07 | Outpatient (CLI) | payer MEDICARE, OTHER, SELFPAY ==
[2024-06-07 18:25] LABS: Anion Gap 7 (5-15); BUN 29 mg/dL (7-18); BUN/Creat Ratio 31.7 RATIO (10-20); Calcium,Total 9.3 mg/dL (8.5-10.1); Chloride 106 mmol/L (98-107); Creatinine, Serum 0.92 mg/dL (0.70-1.30); EST Glomerular Filtration Rate 87 mL/min (>60); Est Glom Filt Rate - Afr Amer 105 mL/min (>60); Glucose 95 mg/dL (74-106); Potassium 3.8 mmol/L (3.5-5.1); Sodium Level 139 mmol/L (136-145)
== END | disposition home or self-care (01) ==
LOC: MFPLAB 15:19
PROVIDERS: PCP Family Medicine; Visit Provider Family Medicine
DX: K40.90 Unilateral inguinal hernia, without obstruction or gangrene, not specified as recurrent (principal)
CPT/HCPCS: 36415; 80048

== ENCOUNTER → 2024-07-06 | Outpatient (CLI) | payer MEDICARE, OTHER, SELFPAY ==
[2024-07-06 12:48] LABS: ALB/GLOB Ratio 1.2 RATIO (0.9-2.4); AST(SGOT) 18 U/L (15-37); Alanine Aminotransfer ALT/SGPT 35 U/L (16-61); Albumin, Serum 3.9 g/dL (3.2-5.0); Alkaline Phosphatase 59 U/L (45-117); Anion Gap 7 (5-15); BUN 26 mg/dL (7-18); BUN/Creat Ratio 30.4 RATIO (10-20); Calcium,Total 9.2 mg/dL (8.5-10.1); Chloride 104 mmol/L (98-107); Cholesterol 189 mg/dL (200); Creatinine, Serum 0.86 mg/dL (0.70-1.30); EST Glomerular Filtration Rate 94 mL/min (>60); Est Glom Filt Rate - Afr Amer 114 mL/min (>60); Globulin 3.2 g/dL (2.2-4.2); Glucose 102 mg/dL (74-106); High Density Lipoprotein 54 mg/dL; Potassium 4.2 mmol/L (3.5-5.1); Protein, Total 7.1 g/dL (6.4-8.2); Sodium Level 136 mmol/L (136-145); Triglycerides 123 mg/dL; Very Low Density Lipoprotein 25 mg/dL (5-40)
== END | disposition home or self-care (01) ==
LOC: MFPLAB 09:47
PROVIDERS: PCP Family Medicine; Visit Provider Family Medicine
DX: I10 Essential (primary) hypertension (principal)
CPT/HCPCS: 36415; 80053; 80061

== ENCOUNTER 2024-07-07 09:38 | Emergency (ER) | payer MEDICARE, OTHER, SELFPAY ==
[2024-07-07 09:39] VITALS: BP 147/87; PULSE 91; RESP 18; TEMP 36.6; O2SAT 99
[2024-07-07 09:40] VITALS: BMI 30.4
== END 2024-07-07 10:49 | disposition home or self-care (01) ==
PROVIDERS: Emergency Provider Emergency Medicine; PCP Family Medicine; Visit Provider Emergency Medicine
DX: S93.601A Unspecified sprain of right foot, initial encounter (principal); X58.XXXA Exposure to other specified factors, initial encounter; I10 Essential (primary) hypertension; Z79.82 Long term (current) use of aspirin; Z79.899 Other long term (current) drug therapy
CPT/HCPCS: 73630; 99282

== ENCOUNTER → 2024-07-12 | Outpatient (CLI) | payer MEDICARE, OTHER, SELFPAY ==
--- NOTE | 2024-07-12 16:29 | CT_ITS ---
EXAM: CT ABDOMEN AND PELVIS WITH INTRAVENOUS CONTRAST CLINICAL INDICATION: LEFT INGUINAL HERNIA TECHNIQUE: Helically acquired images were obtained of the abdomen and pelvis with intravenous contrast. This CT exam was performed using one or more of the following dose reduction techniques: automated exposure control, adjustment of the mA and/or kV according to patient size, and/or use of iterative reconstruction technique. CONTRAST: 100 cc of Isovue-300 IV. With oral contrast. RADIATION DOSE: CTDIvol = 20.95 mGy, DLP = 1546.55 mGy-cm COMPARISON: 09/30/2008. FINDINGS: LOWER THORAX: Subsegmental atelectasis in the lung bases. No cardiomegaly. No significant pericardial effusion. ABDOMEN: LIVER: There is diffuse low-attenuation of the liver. GALLBLADDER AND BILE DUCTS: Unremarkable. No calcified gallstones. No gallbladder distention or wall edema. No intra- or extrahepatic biliary ductal dilation. PANCREAS: Unremarkable. No focal cystic or solid mass. SPLEEN: Unremarkable. Normal size without focal cystic or solid mass. ADRENALS: Unremarkable. No nodules. KIDNEYS AND URETERS: Unremarkable. Normal renal size and position. No hydronephrosis. STOMACH AND BOWEL: Unremarkable. No stomach or bowel distention. No focal inflammatory change. PELVIS: APPENDIX: No evidence of acute appendicitis. BLADDER: Unremarkable. REPRODUCTIVE: Unremarkable as visualized. No mass. ABDOMEN and PELVIS: INTRAPERITONEAL SPACE: Unremarkable. No ascites or other fluid collection. No free air. BONES/JOINTS: Posterior fusion with pedicle screws and rods L3-S1. Laminectomies at L4 and L5. No suspicious lytic or blastic abnormality. SOFT TISSUES: Bilateral fat-containing inguinal hernias left greater than right. Herniation of the left anterior superior aspect of the urinary bladder into the left inguinal canal consistent with an inguinal bladder hernia. VASCULATURE: Unremarkable. Abdominal aorta is non-dilated. LYMPH NODES: Unremarkable. No enlarged lymph nodes. CT/Abdomen/Pelvis WITH Contrast IMPRESSION: 1. No acute abdominal pelvic abnormality. 2. Subsegmental atelectasis in the lung bases. 3. Fatty liver. 4. Posterior fusion with pedicle screws and rods L3-S1. Laminectomies at L4 and L5. 5. Bilateral fat-containing inguinal hernias left greater than right. 6. Herniation of the left anterior superior aspect of the urinary bladder into the left inguinal canal consistent with an inguinal bladder hernia. Electronically Signed: Jad Petersen MD at 7:32 EST ,
== END | disposition home or self-care (01) ==
LOC: CT 16:26
PROVIDERS: PCP Family Medicine; Referring Provider Family Medicine; Visit Provider Family Medicine
DX: K40.90 Unilateral inguinal hernia, without obstruction or gangrene, not specified as recurrent (principal)
CPT/HCPCS: 74177; Q9967; A4216

== ENCOUNTER 2024-08-27 06:03 | Day surgery (SDC) | payer MEDICARE, OTHER, SELFPAY ==
--- NOTE | 2024-08-09 17:18 | PAT.ANESEVAL ---
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 When Was Last Pacemaker Check QUESTION #4 FULL TEXT: You/Your Family Experience fever (hyperthermia) with Anesthesia Last Oral Intake Last Oral intake: Last Oral Intake NPO since Meds taken in AM with sips of water? Meds patient instructed to take am of surgery PONV PONV - sales effectiveness manager: PONV - sales effectiveness manager Female Yes 08/09/24 13:42 HX of Motion Sickness No 08/09/24 13:42 HX of N/V After Surgery No 08/09/24 13:42 Non-Smoker Yes 08/09/24 13:42 Duration of Surgery greater Yes 08/09/24 13:42 than 60 minutes Number of Risk Factors 3 08/09/24 13:42 PONV Score Moderate Risk 08/09/24 13:42 Height & Weight Height & Weight: Anesthesia: Height & Weight Height 6 ft 07/30/24 14:23 Respiratory Assessment Respiratory Assessment - sales effectiveness manager: Respiratory Tract Infection Hx - sales effectiveness manager Hx Respiratory Tract Infection No 08/09/24 13:42 STOP Sleep Apnea STOP Sleep Apnea - sales effectiveness manager: STOP Sleep Apnea - sales effectiveness manager Hx Hypertension Yes: controlled with med 08/09/24 13:42 Hx Sleep Apnea Yes 08/09/24 13:42 CPAP Yes 08/09/24 13:42 BIPAP No 08/09/24 13:42 Do you snore loudly (louder than talking or can be heard Do you often feel tired/ fatigued/ sleepy during daytime? Has anyone observed you stop breathing during sleep? STOP Results Positive 08/09/24 13:42 QUESTION #5 FULL TEXT : Do you snore loudly (louder than talking or can be heard through closed doors)? 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 Specify any problems Hx of Preganancy in last 3 N/A 08/09/24 13:42 Months Nurse Filling Out Transfusion VCHRISTIN 08/09/24 13:42 & Questions: Date: 08/09/24 08/09/24 13:42 Time: 13:43 08/09/24 13:42 Patient unable to answer at this time (ie. confused, unrespo /Reproduction History /Reproductive History - sales effectiveness manager: /Reproductive Hx- sales effectiveness manager Hx Now No 08/09/24 13:42 Gestational Age (in weeks): EDC: Hx Hx Para Hx Section SAB No 08/09/24 13:42 PFSH Medical History (Updated 08/09/24 @ 13:42 by Alesia Corbett) Wears hearing aid Arthritis Sleep apnea Left inguinal hernia Wears glasses Anxiety Hx of Raynaud's syndrome GERD (gastroesophageal reflux disease) Non-smoker CPAP (continuous positive airway pressure) dependence Hx of echocardiogram Hx of cardiovascular stress test Hypertension Back pain Home Medications ?Medication ?Instructions ?Recorded ?Last Taken ?Type aspirin 81 mg chewable tablet 81 mg PO DAILY@0800 06/14/14 01/07/21 06:00 History bawtvgqwxot-zxkypwhzv-ayq C-Mn 500 2 tab PO DAILY 06/14/14 06/13/14 History mg-400 mg capsule multivitamin,wx-dnbc-gttuotwc 27 1 tab PO DAILY 06/14/14 06/13/14 History mg-0.4 mg tablet (Therems-M) omega-3 fatty acids-fish oil 340 2 ea PO BID 06/14/14 06/14/14 History mg-1,000 mg capsule (Fish Oil) lisinopril 10 mg tablet 10 mg PO DAILY #30 TABLETS 06/16/14 04/21/17 06:00 Rx pravastatin 20 mg tablet 20 mg PO DAILY 04/21/17 Unknown History citalopram 20 mg tablet 20 mg PO QDAY 07/30/24 Unknown History nifedipine 60 mg tablet,extended 60 mg PO QDAY 07/30/24 Unknown History release atenolol 25 mg tablet 12.5 mg PO DAILY 08/09/24 Unknown History biotin 2,500 mcg capsule 2,500 mcg PO DAILY 08/09/24 Unknown History calcium 315 mg (as 2 tab PO DAILY 08/09/24 Unknown History citrate)-vitamin D3 6.25 mcg (250 unit) tablet (Citracal + Vitamin D Maximum) cholecalciferol (vitamin D3) 50 100 mcg PO DAILY 08/09/24 Unknown History mcg (2,000 unit) tablet (Vitamin D3) cranberry 500 mg capsule 1,000 mg PO TID 08/09/24 Unknown History meloxicam 15 mg tablet 15 mg PO DAILY 08/09/24 Unknown History pantoprazole 40 mg tablet,delayed 40 mg PO DAILY 08/09/24 Unknown History release Allergy/AdvReac Type Severity Reaction Status Date / Time No Known Allergies Allergy Verified 08/09/24 08:25 Surgical History (Updated 08/09/24 @ 13:42 by Alesia Corbett) Hx of colonoscopy History of back surgery Hx of tonsillectomy Hx of arthroscopy of right knee Hx of arthroscopy of left knee History of esophagogastroduodenoscopy (EGD) Hx of appendectomy Social History (Updated 07/30/24 @ 14:23 by Libia Lay LPN) Smoking Status: Never smoker alcohol intake: never substance use type: does not use Audit: Pertinent Findings Pertinent Findings EKG Perinent findings: nsr Stress test pertinent findings: 05/2014 neg ef 70 Recommendation Anesthesia Recommendation Anesthesia recommendation: OPTIMIZED for anesthesia
[2024-08-27] VITALS (11 sets, daily range): BP systolic 93–109; BP diastolic 60–76; PULSE 54–76; RESP 16–17; TEMP 36.2–37; O2SAT 90–98; BMI 29.2
--- NOTE | 2024-08-27 06:49 | PRE.ANES_ITS ---
ASA Classification* ASA Classification ASA Classification: 2 Assessment & Plan Anesthesia* Anesthesia Assessment Anesthesia Assessment: Discussed sedation and/or anesthesia options, risks, benefits, and alternatives with patient/parents/legal guardian/POA. Questions invited. The patient/parents/legal guardian/POA seems to understand and agrees to proceed with anesthesia plan. Reviewed the physical assessment, medical history, allergy history and patient home medications list prior to surgery/procedure/anesthetic and documented any changes. Performed airway and anesthesia risk assessments. Anesthesia Type Anesthesia Type: General Anesthesia Focused Assessment* Temperature: 98.3 F Pulse Rate: 54 Blood Pressure: 100/63 Respiratory Rate: 16 Pulse Ox: 97 Airway Assessment Mouth opens: >3 cm Mallampati Score: II Focused Labs Anesthesia Preop lab: CBC WBC 8.4 K/mm3 (4.4-11.0) 01/12/20 12:21 RBC 5.71 M/mm3 (4.6-6.2) 01/12/20 12:21 Hgb 16.2 g/dL (13.0-16.5) 01/12/20 12:21 Hct 50.6 % (40-54) 01/12/20 12:21 Plt Count 249 K/mm3 (150-450) 01/12/20 12:21 CHEMISTRY Potassium 4.2 mmol/L (3.5-5.1) 07/06/24 09:48 Sodium 136 mmol/L (136-145) 07/06/24 09:48 BUN 26 mg/dL (7-18) H 07/06/24 09:48 Creatinine 0.86 mg/dL (0.70-1.30) 07/06/24 09:48 Glucose 102 mg/dL (74-106) 07/06/24 09:48 COAG Pre-Assessment Diagnosis/Proposed Procedure Planned Operative Procedure(s): (L) Lap Robotic Inguinal Hernia w/mesh poss bilateral Anesthesia History Anesthesia History - client resource specialist: Anesthesia History - client resource specialist Hx Hospitalization No 08/09/24 13:42 Any Problems With Anesthesia No 08/09/24 13:42 Cholinesterase deficiency No 08/09/24 13:42 You/Your Family Experience No 08/09/24 13:42 fever (hyperthermia) with Relationship Recent Exposure to Contagious No 08/27/24 06:44 Disease Does patient have nerve No 08/09/24 13:42 stimulator Patient instructed to have device shut off --Does patient have Pacemaker No 08/27/24 06:44 or ICD? When Was Last Pacemaker Check QUESTION #4 FULL TEXT: You/Your Family Experience fever (hyperthermia) with Anesthesia Last Oral Intake Last Oral intake: Last Oral Intake NPO since 04:00 08/27/24 06:44 Meds taken in AM with sips of Yes 08/27/24 06:44 water? Meds patient instructed to see home med list 08/27/24 06:44 take am of surgery PONV PONV - client resource specialist: PONV - client resource specialist Female Yes 08/09/24 13:42 HX of Motion Sickness No 08/09/24 13:42 HX of N/V After Surgery No 08/09/24 13:42 Non-Smoker Yes 08/09/24 13:42 Duration of Surgery greater Yes 08/09/24 13:42 than 60 minutes Number of Risk Factors 3 08/09/24 13:42 PONV Score Moderate Risk 08/09/24 13:42 Height & Weight Height & Weight: Anesthesia: Height & Weight Height 6 ft 08/27/24 06:44 Weight: 97.9 kg 08/27/24 06:44 Body Mass Index (BMI) 29.2 08/27/24 06:44 Respiratory Assessment Respiratory Assessment - client resource specialist: Respiratory Tract Infection Hx - client resource specialist Hx Respiratory Tract Infection No 08/09/24 13:42 STOP Sleep Apnea STOP Sleep Apnea - client resource specialist: STOP Sleep Apnea - client resource specialist Hx Hypertension Yes: controlled with med 08/09/24 13:42 Hx Sleep Apnea Yes 08/09/24 13:42 CPAP Yes 08/09/24 13:42 BIPAP No 08/09/24 13:42 Do you snore loudly (louder than talking or can be heard Do you often feel tired/ fatigued/ sleepy during daytime? Has anyone observed you stop breathing during sleep? STOP Results Positive 08/09/24 13:42 QUESTION #5 FULL TEXT : Do you snore loudly (louder than talking or can be heard through closed doors)? 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 Specify any problems Hx of Preganancy in last 3 N/A 08/09/24 13:42 Months Nurse Filling Out Transfusion VCHRISTIN 08/09/24 13:42 & Questions: Date: 08/09/24 08/09/24 13:42 Time: 13:43 08/09/24 13:42 Patient unable to answer at this time (ie. confused, unrespo /Reproduction History /Reproductive History - client resource specialist: /Reproductive Hx- client resource specialist Hx Now No 08/09/24 13:42 Gestational Age (in weeks): EDC: Hx Hx Para Hx Section SAB No 08/09/24 13:42 Active Medications Active Medications: Current Medications Generic Name Dose Route Start Last Admin Trade Name Freq PRN Reason Stop Dose Admin Cefazolin Sodium 2 gm/ N/A 20 mls @ 400 mls/hr 08/27/24 07:30 IV 08/27/24 07:32 PREOP ONE Sodium Chloride 1,000 mls @ 15 mls/hr 08/27/24 06:15 IV 09/01/24 19:34 .Q48H [facility] Protocol PFSH Medical History Wears hearing aid Arthritis Sleep apnea Left inguinal hernia Wears glasses Anxiety Hx of Raynaud's syndrome GERD (gastroesophageal reflux disease) Non-smoker CPAP (continuous positive airway pressure) dependence Hx of echocardiogram Hx of cardiovascular stress test Hypertension Back pain Home Medications ?Medication ?Instructions ?Recorded ?Last Taken ?Type aspirin 81 mg chewable tablet 81 mg PO DAILY@0800 06/14/14 08/11/24 History ylocayiqeui-jklwkskoa-bvc C-Mn 500 2 tab PO DAILY 06/14/14 08/26/24 History mg-400 mg capsule multivitamin,mf-tosi-jacjtvbd 27 1 tab PO DAILY 06/14/14 08/26/24 History mg-0.4 mg tablet (Therems-M) omega-3 fatty acids-fish oil 340 2 ea PO BID 06/14/14 08/26/24 History mg-1,000 mg capsule (Fish Oil) lisinopril 10 mg tablet 10 mg PO DAILY #30 TABLETS 06/16/14 08/27/24 Rx pravastatin 20 mg tablet 20 mg PO DAILY 04/21/17 08/26/24 History citalopram 20 mg tablet 20 mg PO QDAY 07/30/24 08/26/24 History nifedipine 60 mg tablet,extended 60 mg PO QDAY 07/30/24 08/26/24 History release atenolol 25 mg tablet 12.5 mg PO DAILY 08/09/24 08/27/24 History biotin 2,500 mcg capsule 2,500 mcg PO DAILY 08/09/24 08/26/24 History calcium 315 mg (as 2 tab PO DAILY 08/09/24 08/26/24 History citrate)-vitamin D3 6.25 mcg (250 unit) tablet (Citracal + Vitamin D Maximum) cholecalciferol (vitamin D3) 50 100 mcg PO DAILY 08/09/24 08/26/24 History mcg (2,000 unit) tablet (Vitamin D3) cranberry 500 mg capsule 1,000 mg PO TID 08/09/24 08/26/24 History meloxicam 15 mg tablet 15 mg PO DAILY 08/09/24 08/26/24 History pantoprazole 40 mg tablet,delayed 40 mg PO DAILY 08/09/24 08/27/24 History release Allergy/AdvReac Type Severity Reaction Status Date / Time No Known Allergies Allergy Verified 08/27/24 06:42 Surgical History Hx of colonoscopy History of back surgery Hx of tonsillectomy Hx of arthroscopy of right knee Hx of arthroscopy of left knee History of esophagogastroduodenoscopy (EGD) Hx of appendectomy Social History Smoking Status: Never smoker alcohol intake: never substance use type: does not use Review of Systems (Anesthesia) ROS Narrative System reviewed and no additional complaints, except as documented.
--- NOTE | 2024-08-27 07:15 | HP.PCM_ITS ---
History and Physical Date of Admission: 08/27/24 Date of Service: 07/30/24 MR#: [id number] Acct: [id number] Name: KRIS PEREZ Rep #: [id number] : 1955 Provider: Dr. Yesika Koch MD Age/Sex: 69/M Location: [facility] Status: Signed Intake Vital Signs 07/07/2409:39 07/30/2414:23 Height 6 ft 6 ft Weight: 218 lb BMI 29.5 BP 142/82 H Blood Pressure Location Rt brachial Position Sitting Respiration 18 Pulse 73 Pulse Source Monitor Temp 97.6 F L Temp Source Temporal Pulse Oximetry (%) 97 Oxygen Delivery Method room air Intake Visit Reasons: INGUINAL HERNIA Chief Complaint: left inguinal hernia Accompanied by: Is patient in pain?: No Allergies No Known Allergies Allergy (Verified 07/30/24 14:24) Have you fallen in the past year?: No PFSH Medical History (Updated 07/30/24 @ 14:23 by Libia Lay LPN) Left inguinal hernia Wears glasses Anxiety Hx of Raynaud's syndrome GERD (gastroesophageal reflux disease) Non-smoker CPAP (continuous positive airway pressure) dependence Hx of echocardiogram Hx of cardiovascular stress test Hypertension Back pain Surgical History Hx of tonsillectomy Hx of arthroscopy of right knee Hx of arthroscopy of left knee History of esophagogastroduodenoscopy (EGD) Hx of appendectomy Social History (Updated 07/30/24 @ 14:23 by Libia Lay LPN) Smoking Status: Never smoker alcohol intake: never substance use type: does not use HPI HPI HPI: 69-year-old male presents due to left inguinal hernia. Patient states he has had this for a while and is noticed that it does bulge out or swell especially if he needs to urinate. Patient has CT scan done that shows part of the bladder and the inguinal hernia. Also shows a small right inguinal hernia per CT. Patient denies any pain on the right. Patient did have previous open appendectomy when he was younger. Patient is interested in repair of the left inguinal hernia. ROS General General: No weight change, appetite, fatigue, colon cancer, breast cancer or weakness HEENT HEENT: No difficulty swallowing, eye injury, eye surgery, swollen glands or hoarseness Endo Endocrine: No thyroid disease, diabetes mellitus, thyroid cancer, Hair loss, heat intolerance or cold intolerance Skin Skin: No rash or changing moles Musc Musculoskeletal: No back problems, arthritis, rheumatoid arthritis, gout or joint pain Cardio Cardiovascular: Yes high blood pressure; No murmur, pacemaker, heart disease, atrial fibrillation, heart attack, heart stent, palpitations, shortness of breat with exertion or chest pain Psych Psychiatric: No depression, anxiety or hearing voices Resp Respiratory: No shortness of breath, Yes sleep apnea, No cough, No COPD, No asthma, No emphysema and No wheezing Gastro Gastrointestinal: No abdominal pain, No nausea or vomiting, No diarrhea, No constipation, No blood in stool, No acid reflux, No hemorrhoids, No ulcers, No gallbladder problem and No black,tarry stools Shine Hematologic: Yes blood thinners, No blood disorders, No bleeding, No anemia and No blood clots Additional Details: fish oil/ baby aspirin Neuro Neurologic: No tingling and No weakness Exam Const General: cooperative, healthy appearing, comfortable and no acute distress HENMT Head: normocephalic and atraumatic Neck Neck: supple Resp Effort & Inspection: normal respiratory effort Cardio Rate: regular rate GI Inspection: non-distended Palpation: soft, hernia (Left inguinal likely indirect, no obvious inguinal hernia on the right on e) and nontender Skin General: no rashes or lesions noted Neuro General: CN's II-XI intact bilaterally Extrem General: normal to inspection Psych Mental Status: mental status grossly normal Attitude: cooperative Assessment and Plan Assessment and Plan (1) Left inguinal hernia: Status: Acute Medications: Discontinued cyclobenzaprine Discontinued Reason: Pt no longer taking 10 mg PO TID PRN PRN 30 TABLETS 0RF Muscle Spasm pantoprazole Discontinued Reason: Pt no longer taking 40 mg PO DAILY 14 TABLETS 0RF Plan Plan to do a robotic left inguinal hernia repair with mesh, possible bilateral. Reviewed the procedure with the patient including the risks, including but not limited to infection, bleeding, paresthesia, chronic pain, injury to small bowel or contents of the spermatic cord, and recurrence. Also discussed that if there are multiple/dense adhesions due to the previous open appendectomy would not attempt to take them all down since he is not having any issues with the right side. Patient and his had no further question this time. Yesika Koch M.D. Pager: [phone] [facility] [address] [place] [address], [facility], [address] [place] [id number] Office: [phone] Coding Level of Care Code Off vis,est,level 3 Diagnoses Left inguinal hernia K40.90 Clinical Quality Measures Falls Risk Screening/Assistive Devices Have you fallen in the past year?: No 07/31/24 0952 <Electronically signed by Yesika Koch MD> Date Yesika Koch MD
[2024-08-27] MEDS: Cefazolin 2 GM in Syringe IV (07:28)
[2024-08-27] MEDS: Bupivacaine Mpf 0.5% 30 ML VIAL (09:17)
--- NOTE | 2024-08-27 09:33 | OP.PCM_ITS ---
Operative Report (Standard) Operative Information Date of Procedure: 08/27/24 Pre-Operative Diagnosis: Left inguinal hernia Post-Operative Diagnosis: Indirect left inguinal hernia Surgery/Procedure Performed: Robotic left inguinal hernia repair with mesh client service associate: Yes Co Chairman: Alesha Rubio Tasks completed by first assistant manager: Opening & closing Type of Anesthesia: General/Supplemental RN Documented Start/Stop Times: Operation Date: 08/27/24 07:30 Case Time Into Pre-Op 08/27/24 06:10 Out of Pre-Op 08/27/24 07:25 Anesthesia Start 08/27/24 07:28 Into Room 08/27/24 07:28 Procedure Start 08/27/24 07:48 Procedure End 08/27/24 09:19 Anesthesia End 08/27/24 09:27 Out of Room 08/27/24 09:27 Procedure Start Time: 07:48 Procedure Stop Time: 09:19 Select all DRAINS/GRAFTS/IMPLANTS that apply: Prosthetic device Prosthetic device details: ProGrip mesh Lot [id number] ref [id number] Special Medications: Ancef 2 g IV x 1 Estimated Blood Loss: 20 cc Specimen collected: No Description of surgery: Indications: 69-year-old male presented with left inguinal hernia which was symptomatic. Robotic left inguinal hernia repair with mesh was elected patient was agreeable. Description of procedure: Patient was brought to operating room placed supine operative table. Timeout was completed verifying correct patient, procedure, site, positioning, special, prior to beginning procedure. General anesthesia was induced. Patient's arms were tucked and padded appropriately. Visiport was used to make the incision at Oliva's point in the left upper quadrant. Entry into the abdomen was confirmed visually. Laparoscope was placed. Verifying no injury during initial trocar placement. Patient was placed in Trendelenburg position. Two 8 mm trochars were placed along the horizontal line in the midline and in the right upper quadrant. The initial 5 mm trocar was upsized to an 8 mm well under direct visualization. Both the inguinal regions were inspected and left direct was seen?multiple adhesions of omentum to the abdominal wall in the right lower quadrant?left in place. The median umbilical ligament was divided sharply with electrocautery. Peritoneum was incised with the endoscopic scissors along a line 2 cm above the superior edge of the hernia defect extending from the median umbilical ligament to anterior superior iliac spine. Peritoneal flap was mobilized inferiorly using blunt and sharp dissection. The inferior epigastric vessels were exposed and symphysis pubis and identified. The direct hernia sac was large which was reduced, vas deferens and cord vessels were identified and skeletonized. A ProGrip mesh was used. The mesh was rolled longitudinally into a compact cylinder and passed through the trocar. The cylinder was placed along the inferior aspect of the working space and unrolled into place to completely cover the direct, indirect and femoral spaces. The mesh was secured in place medially to Castillo's ligament as well as to the anterior abdominal wall. Care was taken to avoid the inferolateral triangle containing iliac vessels and genital nerves. The peritoneal flap was closed over mesh and secured with 3-0 V-Loc suture. After ensuring adequate hemostasis, the trochars were removed and pneumoperitoneum allowed to escape. The skin was closed with 4-0 Monocryl interrupted sutures and Steri-Strips. Patient's testicles are also confirmed in the scrotum bilaterally. Patient tolerated procedure well was taken to the postanesthesia care unit in stable condition. Surgical Findings: Large left direct hernia, multiple adhesions of omentum to the right lower quadrant abdominal wall Complications Complications: No
--- NOTE | 2024-08-27 09:40 | DCINST_ITS ---
Discharge Instructions Procedure Hernia Diet Discharge Diet: Light diet - advance as tolerated Activity Discharge Activity: May Not Drive (while taking narcotic pain meds.) and May Shower (with the bandage in place 1 day after surgery.) Lifting Restrictions: 20 pounds for 2 weeks, then 40 lbs for 4 weeks Additional Activity Instructions:: Climbing stairs is fine, walking is encouraged. Sitting in bed may be uncomfortable. Sitting up using your lateral muscles (sitting up sideways) is usually more comfortable. Do not drive, work heavy equipment of sign legal documents for 24 hours. You may have scrotal swelling, an ice pack and/or athletic support can provide more comfort. Pain medications may cause nausea, you should typically eat light foods as you take your pain medications. Pain medications may also cause constipation. If you have difficulty with this, discuss with your doctor. Dressing / Incision Call your doctor if your incision/area has: Continuous Slow Oozing, Sudden Increased Bleeding, Increased Pain/ Swelling, Increased Redness and Foul Smelling Discharge Call your doctor if you observe: Fever of 101 or Higher Suture Line Care: Avoid Pulling/Pushing and Avoid Pinching/Bending Change Dressing in: 3 days (Leave steri-strips in place for 1 week. can remove opsite after 1 day) Additional Dressing/Incision Instructions:: Leave the operative bandage on for 2-3 days. When you remove the bandage, leave the steri-strips on place until your follow up appointment or they fall off. Follow Up Care Please Follow Up With: Yesika Koch MD When: Please call [phone] for a follow up appointment in 2 weeks. After 5:00pm and the weekends call [phone] with any concerns Test Results: Test results from this visit will be discussed in further detail at your follow- up appointment, if applicable. Discharge Plan Admission Attending Provider: Yesika Koch Primary Care Provider: Keith Ibarra Instructions Print Language: Martiniquais Discharge Orders/Prescriptions Prescriptions: New oxycodone 5 mg capsule 5 mg PO Q6H PRN (Reason: pain) 3 Days Qty: 10 0RF Continued citalopram 20 mg tablet 20 mg PO QDAY nifedipine 60 mg tablet extended release 60 mg PO QDAY Therems-M 1 TABLET tablet 1 tab PO DAILY Patient Comments: vitamin [id number] C-Mn 1 EACH capsule 2 tab PO DAILY Patient Comments: supplement Fish Oil 1 EACH capsule 2 ea PO BID Patient Comments: heart STOP 5 DAYS PRIOR TO OR lisinopril 10 MG tablet 10 mg PO DAILY Qty: 30 0RF Patient Comments: blood pressure pravastatin 20 MG tablet 20 mg PO DAILY meloxicam 15 mg tablet 15 mg PO DAILY atenolol 25 mg tablet 12.5 mg PO DAILY pantoprazole 40 mg tablet,delayed release (DR/EC) 40 mg PO DAILY cranberry 500 mg capsule 1,000 mg PO TID Rx Instructions: administer with meals biotin 2,500 mcg capsule 2,500 mcg PO DAILY calcium citrate-vitamin D3 [Citracal + D Maximum] 315 mg-6.25 mcg (250 unit) tablet 2 tab PO DAILY cholecalciferol (vitamin D3) [Vitamin D3] 50 mcg (2,000 unit) tablet 100 mcg PO DAILY Held aspirin 81 MG tablet,chewable 81 mg PO DAILY@0800 Hold Instructions: Resume on 08/30/24. Patient Comments: blood thinner/heart STOP 5 DAYS PRIOR TO OR Referrals / Follow Up: Keith Ibarra MD [Primary Care Provider] - Disposition Disposition (needs filled in before D/C Order can be placed): Home, Self Care
[2024-08-27] MEDS: Acetaminophen 325 MG Tablet 650 MG PO (10:46)
--- NOTE | 2024-08-27 11:45 | PCM.POST.ANE ---
Anesthesia: Postop Eval I Current Vital Signs Temperature: 98.6 F Pulse Rate: 67 Blood Pressure: 102/67 Respiratory Rate: 16 Pulse Ox: 97 Assessment Airway patent: Yes Spontaneous unlabored respirations: Yes nausea: No Vomiting: No Anesthesia Complication: No Fluid Hydration Crystalloid volume administer (ml): 500 Total IV fluid infused: 500 Progress Note Anesthesia document: Postop Eval 1 completed: Yes
--- NOTE | 2024-08-27 12:09 | PCM.POSTANE2 ---
Anesthesia Postop Eval I Sum Postop Eval Completion status Anesthesia document: Postop Eval 1 completed: Yes Anesthesia Postop Eval I Summary Anesthesia Postop Eval I Summary: Anesthesia Postop Eval I: Assessment Summary Airway patent Yes 08/27/24 12:09 Spontaneous unlabored Yes 08/27/24 12:09 respirations Mental status nausea No 08/27/24 12:09 Vomiting No 08/27/24 12:09 Anesthesia Postop Eval I: Fluid Summary Crystalloid volume administer 500 08/27/24 12:09 (ml) Colloids volume administered ( ml) Blood Product volume administered (ml) Total IV fluid infused 500 08/27/24 12:09 Anesthesia Postop Eval I: Summary Notes Anesthesia Complication No 08/27/24 12:09 Anesthesia Complication Comment: Post-operative progress note Anesthesia: Postop Eval II Evaluation Mental status: Awake and Calm Pain Level: 0 nausea: No Vomiting: No
--- NOTE | 2024-08-27 13:48 | PCM.POST.ANE ---
Anesthesia: Postop Eval I Current Vital Signs Temperature: 97.2 F Pulse Rate: 76 Blood Pressure: 109/67 Respiratory Rate: 17 Pulse Ox: 98 Oxygen Delivery Method: Room Air Assessment Airway patent: Yes Spontaneous unlabored respirations: Yes Mental status: Awake and Calm nausea: No Vomiting: No Anesthesia Complication: No Fluid Hydration Crystalloid volume administer (ml): 1,000 Total IV fluid infused: 1,000 Progress Note Anesthesia document: Postop Eval 1 completed: Yes
== END 2024-08-27 11:37 | disposition home or self-care (01) ==
LOC: SDC 06:04 → AC 06:06
PROVIDERS: PCP Family Medicine; Referring Provider Surgery; Visit Provider Surgery
PROC: 0YQ64ZZ Repair Left Inguinal Region, Percutaneous Endoscopic Approach (ICD-10-PCS; CPT 49650; principal; 2024-08-27 07:10)
DX: K40.90 Unilateral inguinal hernia, without obstruction or gangrene, not specified as recurrent (principal); K66.0 Peritoneal adhesions (postprocedural) (postinfection); I10 Essential (primary) hypertension; K21.9 Gastro-esophageal reflux disease without esophagitis; Z79.01 Long term (current) use of anticoagulants; Z79.899 Other long term (current) drug therapy
CPT/HCPCS: 49650; S2900; 00840; J2405

== ENCOUNTER → 2025-01-13 | Outpatient (CLI) | payer MEDICARE, OTHER, SELFPAY ==
[2025-01-13 13:06] LABS: Anion Gap 13 (5-15); BUN 15 mg/dL (4-19); BUN/Creat Ratio 17.7 RATIO (10-20); Calcium,Total 9.4 mg/dL (7.6-11.0); Carbon Dioxide 22.6 mmol/L (21.0-32.0); Chloride 102 mmol/L (98-108); Creatinine, Serum 0.82 mg/dL (0.70-1.20); EST Glomerular Filtration Rate 95 (>60); Glucose 107 mg/dL (70-99); Sodium Level 138 mmol/L (133-145)
== END | disposition home or self-care (01) ==
LOC: MFPLAB 10:10
PROVIDERS: PCP Family Medicine; Referring Provider Family Medicine; Visit Provider Family Medicine
DX: E78.00 Pure hypercholesterolemia, unspecified (principal); Z12.5 Encounter for screening for malignant neoplasm of prostate
CPT/HCPCS: 36415; 80048; 84153; G0103

== ENCOUNTER → 2025-07-28 | Outpatient (CLI) | payer MEDICARE, OTHER, SELFPAY ==
[2025-07-28 13:26] LABS: AST(SGOT) 22 U/L (<=37); Alanine Aminotransfer ALT/SGPT 31 U/L (<=46); Albumin, Serum 4.5 g/dL (3.4-4.8); Alkaline Phosphatase 54 U/L (40-129); Anion Gap 12 (5-15); BUN 22 mg/dL (4-19); BUN/Creat Ratio 24.2 RATIO (10-20); CPK Total, Creatine Kinase 194 U/L (24-195); Calcium,Total 9.8 mg/dL (7.6-11.0); Carbon Dioxide 25.8 mmol/L (21.0-32.0); Chloride 100 mmol/L (98-108); Cholesterol 186 mg/dL (<=200); Globulin 2.7 g/dL (2.2-4.2); Glucose 110 mg/dL (70-99); Low Density Lipoprotein Calc. 113 mg/dL; Potassium 4.1 mmol/L (3.3-5.1); Triglycerides 127 mg/dL; Very Low Density Lipoprotein 25 mg/dL (5-40); cholesterol:hdl ratio screen 3.66
== END | disposition home or self-care (01) ==
LOC: MFPLAB 10:27
PROVIDERS: PCP Family Medicine; Visit Provider Family Medicine
DX: E78.00 Pure hypercholesterolemia, unspecified (principal); M79.10 Myalgia, unspecified site
CPT/HCPCS: 36415; 80053; 80061; 82550

== ENCOUNTER → 2025-08-09 | Outpatient (CLI) | payer MEDICARE, OTHER, SELFPAY ==
--- NOTE | 2025-08-09 09:50 | RAD_ITS ---
PROCEDURE: LUMBAR SPINE 2 OR 3 VIEWS 08/09/2025 REASON FOR EXAM: BACK AND LEG PAIN TECHNIQUE: Procedure Code: RADSPLL Modality: DX Procedure: LUMBAR SPINE 2 OR 3 VIEWS COMPARISON: None FINDINGS: There is hardware fusion from L3-S1 which appears intact and aligned. Laminectomy change is noted. There is grade 1 retrolisthesis at L2-3, 0.3 cm. There is loss of disc height from T12-L3. The facets are aligned. Osteopenia is noted. Vascular calcifications are visible. RAD/Lumbar Spine 2 or 3 Views IMPRESSION: There is hardware fusion from L3-S1 which appears intact and aligned. Laminect uche change is noted. There is grade 1 retrolisthesis at L2-3, 0.3 cm. There is loss of disc height from T12-L3. Reading Location: [facility]
== END | disposition home or self-care (01) ==
LOC: RAD 09:43
PROVIDERS: PCP Family Medicine; Referring Provider Family Medicine; Visit Provider Family Medicine
DX: M79.606 Pain in leg, unspecified (principal)
CPT/HCPCS: 72100